=== PATIENT | female | born 2000 | race Caucasian/White ===

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

== ENCOUNTER → 2022-02-12 | Outpatient (REF) | payer OTHER ==
[~2022-02-12] MED LIST changes: -CEFD1CAP8; +CEFD300C41
== END ==
LOC: M SFHCCLAY 14:27
PROVIDERS: ATTEND Nurse Practitioner Family
DX: Z01.419 Encounter for gynecological examination (general) (routine) without abnormal findings (principal)

== ENCOUNTER → 2022-05-31 | Outpatient (CLI) | payer OTHER ==
[2022-05-31 15:49] LABS: HEMATOCRIT 34.8 % (36.0-47.0); HEMOGLOBIN 11.6 g/dl (12.0-15.5); MEAN CORPUSCULAR HEMOGLOBIN 28.6 pg (27.0-33.0); MEAN CORPUSCULAR HGB CONC 33.3 g/dl (32.0-36.5); MEAN CORPUSCULAR VOLUME 85.9 fl (80.0-96.0); PLATELET COUNT, AUTOMATED 219 10^3/uL (150-450); RED BLOOD COUNT 4.05 10^6/uL (4.00-5.40)
[2022-05-31 16:24] LABS: HIV 1&2 SCREEN CENTAUR NEGATIVE (NEGATIVE)
[2022-05-31 16:33] LABS: HEPATITIS C VIRUS ABY INDEX < 0.0 INDEX (<0.8)
[2022-05-31 17:16] LABS: GC DNA AMPLIFICATION NEGATIVE (NEGATIVE)
== END ==
LOC: M PLALAB 13:30
PROVIDERS: ATTEND Advanced Practice Midwife
DX: Z34.01 Encounter for supervision of normal first pregnancy, first trimester (principal)

== ENCOUNTER → 2022-08-06 | Outpatient (CLI) | payer OTHER | LOC: M WHC 09:43 | PROVIDERS: ATTEND Specialist | DX: Z34.02 Encounter for supervision of normal first pregnancy, second trimester (principal); Z3A.22 22 weeks gestation of pregnancy ==

== ENCOUNTER → 2022-08-09 | Outpatient (REF) | payer OTHER | LOC: M PLALAB 14:02 | PROVIDERS: ATTEND Advanced Practice Midwife | DX: Z34.02 Encounter for supervision of normal first pregnancy, second trimester (principal) ==

== ENCOUNTER → 2022-09-17 | Outpatient (CLI) | payer OTHER ==
[2022-09-17 13:42] LABS: HEMATOCRIT 32.8 % (36.0-47.0); HEMOGLOBIN 10.7 g/dl (12.0-15.5); MEAN CORPUSCULAR HEMOGLOBIN 29.4 pg (27.0-33.0); MEAN CORPUSCULAR HGB CONC 32.6 g/dl (32.0-36.5); MEAN CORPUSCULAR VOLUME 90.1 fl (80.0-96.0); PLATELET COUNT, AUTOMATED 219 10^3/uL (150-450); RED BLOOD COUNT 3.64 10^6/uL (4.00-5.40); WHITE BLOOD COUNT 10.2 10^3/uL (4.0-10.0)
== END ==
LOC: M PLALAB 09:56
PROVIDERS: ATTEND Advanced Practice Midwife
DX: Z34.02 Encounter for supervision of normal first pregnancy, second trimester (principal)

== ENCOUNTER → 2022-10-03 | Outpatient (REF) | payer OTHER | LOC: M SFHCWAGY 16:54 | PROVIDERS: ATTEND Obstetrics & Gynecology | DX: Z34.03 Encounter for supervision of normal first pregnancy, third trimester (principal) ==

== ENCOUNTER → 2022-11-14 | Outpatient (REF) | payer OTHER | LOC: M PLALAB 13:41 | PROVIDERS: ATTEND Obstetrics & Gynecology | DX: Z34.80 Encounter for supervision of other normal pregnancy, unspecified trimester (principal) ==

== ENCOUNTER 2022-12-08 15:30 | Inpatient (IN) | payer OTHER ==
[~2022-12-08] VITALS: Ht 162.6 cm; Wt 93.1 kg
[2022-12-08] VITALS (21 sets, daily range): BP systolic 111–159; BP diastolic 53–81
[~2022-12-08 15:30] MED LIST changes: -CEFD300C41; +CEFD300C42
[2022-12-08] MEDS ORDERED: MULTTAB20 PO (15:41)
[2022-12-08] MEDS ORDERED: HOME MED LIST COMPLETE! XX SCH (15:45)
[2022-12-08] MEDS ORDERED: OXYTOCIN DRIP 30 UNITS in IV 1 EA IV PRN ×4 (15:55)
[2022-12-08] MEDS ORDERED: TRANEXAMIC ACID INJection 1,000 MG in NS 100 ML IV PRN (15:55)
[2022-12-08] MEDS ORDERED: METHYLERGONOVINE MALEATE 0.2MG/ML 1ML VIAL IM PRN (15:55)
[2022-12-08] MEDS ORDERED: LACTATED RINGER'S 1000 ML IV PRN (15:55)
[2022-12-08] MEDS ORDERED: CARBOPROST TROMETHAMINE 250 MCG/ML AMP IM PRN (15:55)
[2022-12-08 17:44] LABS: HEMOGLOBIN 12.5 g/dl (12.0-15.5); MEAN CORPUSCULAR HEMOGLOBIN 29.5 pg (27.0-33.0); MEAN CORPUSCULAR HGB CONC 33.8 g/dl (32.0-36.5); MEAN CORPUSCULAR VOLUME 87.3 fl (80.0-96.0); PLATELET COUNT, AUTOMATED 217 10^3/uL (150-450); RED BLOOD COUNT 4.24 10^6/uL (4.00-5.40); WHITE BLOOD COUNT 13.5 10^3/uL (4.0-10.0)
[2022-12-08] MEDS ORDERED: EPIDURAL/PCA KEYS XX PRN (20:00)
[2022-12-08] MEDS ORDERED: FENTANYL/ROPIVACAINE/NACL BAG 100 ML EPIDURAL SCH (20:00)
[2022-12-08] MEDS ORDERED: ePHEDrine SULFATE 25 MG/5 ML(5MG/ML) SYRINGE IVP PRN (20:00)
[2022-12-08] MEDS ORDERED: LR 500 ML IV PRN (20:00)
[2022-12-08] MEDS ORDERED: ONDANSETRON 4MG 2ML VIAL IV PRN (20:00)
[2022-12-08] MEDS ORDERED: diphenhydrAMINE 50MG/ML VIAL IV PRN (20:00)
[2022-12-08] MEDS ORDERED: NALOXONE INJ 0.4MG/1ML VIAL IV PRN (20:00)
[2022-12-08] MEDS ORDERED: DOCUSATE SODIUM 100MG CAPSULE PO PRN (23:55)
[2022-12-08] MEDS ORDERED: OXYTOCIN DRIP 30 UNITS in IV 1 EA IV SCH (23:55)
[2022-12-08] MEDS ORDERED: METHYLERGONOVINE MALEATE 0.2 MG TAB PO PRN (23:55)
[2022-12-08] MEDS ORDERED: DIBUCAINE 1% OINTMENT 30GM TOP PRN (23:55)
[2022-12-08] MEDS ORDERED: RHOGAM 300MCG (1500IU) INJ IM SCH (23:55)
[2022-12-08] MEDS ORDERED: ACETAMINOPHEN 500 MG TAB PO PRN (23:55)
[2022-12-09 01:00] VITALS: BP 143/72; O2SAT 97
[2022-12-09 06:00] VITALS: BP 111/56; O2SAT 97
[2022-12-09] MEDS: IBUPROFEN 600MG TAB PO PRN ×2 (06:12→15:30)
[2022-12-09] MEDS: PRENATAL VITAMINS CHEWABLE TABLET PO SCH (08:15)
[2022-12-09 08:38] LABS: HEMATOCRIT 32.5 % (36.0-47.0); HEMOGLOBIN 10.8 g/dl (12.0-15.5); MEAN CORPUSCULAR HEMOGLOBIN 29.7 pg (27.0-33.0); MEAN CORPUSCULAR HGB CONC 33.2 g/dl (32.0-36.5); MEAN CORPUSCULAR VOLUME 89.3 fl (80.0-96.0); PLATELET COUNT, AUTOMATED 200 10^3/uL (150-450); RED BLOOD COUNT 3.64 10^6/uL (4.00-5.40)
[2022-12-09 18:00] VITALS: BP 121/63; O2SAT 98
[2022-12-10] MEDS: IBUPROFEN 600MG TAB PO PRN (00:09)
[2022-12-10 06:00] VITALS: BP 125/74; O2SAT 99
[2022-12-10] MEDS ORDERED: MEASLES,MUMPS,RUBELLA VACCINE INJ (MMR-II) SC.IMMUN ONE (09:00)
[2022-12-10] MEDS: PRENATAL VITAMINS CHEWABLE TABLET PO SCH (09:30)
== END 2022-12-10 19:33 | disposition home or self-care (01) | DRG 560 ==
LOC: M LDO 15:30 → M LDI 15:53 → M OBS 12-09 00:45
PROVIDERS: ADMIT Obstetrics & Gynecology; ATTEND Obstetrics & Gynecology
PROC: 10E0XZZ Delivery of Products of Conception, External Approach (ICD-10-PCS; principal; 2022-12-08)
PROC: 10907ZC Drainage of Amniotic Fluid, Therapeutic from Products of Conception, Via Natural or Artificial Opening (ICD-10-PCS; 2022-12-08)
DX: O70.1 Second degree perineal laceration during delivery (principal); Z37.0 Single live birth; Z3A.40 40 weeks gestation of pregnancy

== ENCOUNTER → 2025-01-07 | Outpatient (REF) | payer OTHER ==
[~2025-01-07] MED LIST changes: +CEFD1CAP9; -CEFD300C42; +MULTTAB20 PO
[2025-01-07 14:50] LABS: BASO # 0.0 10^3/uL (0.0-0.2); BASO % 0.6 % (0.0-1.0); EOS # 0.1 10^3/uL (0.0-0.5); EOS % 1.3 % (0.0-3.0); LYMPH # 2.7 10^3/uL (1.5-5.0); LYMPH % 42.4 % (24.0-44.0); MONO # 0.5 10^3/uL (0.0-0.8); MONO % 7.7 % (2.0-8.0); NEUTROPHILS # 3.0 10^3/uL (1.5-8.5); NEUTROPHILS % 47.7 % (36.0-66.0); PLATELET COUNT, AUTOMATED 212 10^3/uL (150-450)
[2025-01-07 14:51] LABS: IRON (FE) 97 UG/DL (50-170); PERCENT SATURATION 25.3 % (13.2-45.0)
[2025-01-07 14:52] LABS: ALT/SGPT 14 U/L (7.0-40); AST/SGOT 16 U/L (<34); CALCIUM LEVEL 8.9 MG/DL (8.5-10.1); CARBON DIOXIDE LEVEL 27 MMOL/L (20-31); CHLORIDE LEVEL 108 MMOL/L (98-107); CREATININE FOR GFR 0.84 MG/DL (0.55-1.30); GLOMERULAR FILTRATION RATE > 90.0 (>60); POTASSIUM SERUM 4.1 MMOL/L (3.5-5.1); SODIUM LEVEL 141 MMOL/L (136-145)
[2025-01-07 14:55] LABS: FREE T4 1.03 NG/DL (0.89-1.76)
[2025-01-07 14:56] LABS: TESTOSTERONE 23 NG/DL (14-76)
[2025-01-07 14:57] LABS: LUTEINIZING HORMONE 2.3 mIU/ML; PROLACTIN 3.50 NG/ML
[2025-01-07 15:07] LABS: ESTIMATED AVERAGE GLUCOSE 114.0 MG/DL (60-110)
== END ==
LOC: M SFHCCLAY 08:44
PROVIDERS: ATTEND Nurse Practitioner Family
DX: R53.83 Other fatigue (principal); N94.6 Dysmenorrhea, unspecified

== ENCOUNTER → 2025-02-03 | Outpatient (CLI) | payer OTHER, SELFPAY | LOC: M WHC 09:38 | PROVIDERS: ATTEND Nurse Practitioner Family | DX: N94.6 Dysmenorrhea, unspecified (principal) ==

== ENCOUNTER → 2025-02-18 | Outpatient (REF) | payer BC ==
[2025-02-18 20:32] LABS: Trichomonas vaginalis (AMP) NOT DETECTED (NEGATIVE)
[2025-02-18 20:55] LABS: GC DNA AMPLIFICATION NEGATIVE (NEGATIVE)
[2025-02-22 14:17] LABS: HPV APTIMA Not Detected (Not Detected)
== END ==
LOC: M SFHCCLAY 15:06
PROVIDERS: ATTEND Nurse Practitioner Family
DX: Z01.419 Encounter for gynecological examination (general) (routine) without abnormal findings (principal)